=== PATIENT | female | born 1960 | race Caucasian/White ===

== ENCOUNTER 2022-03-28 06:05 | Day surgery (SDC) | payer OTHER ==
[~2022-03-28 06:05] MED LIST: Acetaminophen 325 MG Tab PO SCH; Albuterol 0.083% 2.5 MG/3 ML Neb Soln NEB PRN; EPINEPHrine 1 MG/ML SDV ONE; Lactated Ringers 1,000 ML IV SCH; Lidocaine 1%/Sod Bicarbonate in NS 8.4% 1 ML Syringe IDERM PRN; Morphine 8 MG, EPINEPHrine 0.3 MG, Cefuroxime 750 MG, Ketorolac 30 MG, Sodium Chloride ... PRN; Pregabalin 25 MG Cap PO SCH; Ropivacaine 0.5% 5 MG/ML 30 ML SDV ONE; Sodium Chloride 0.9% 10 ML Syringe FLUSH PRN; Sodium Chloride 0.9% 10 ML Syringe FLUSH SCH; oxyCODONE ER 10 MG TAB.ER PO SCH
[2022-03-28] MEDS ORDERED: Vancomycin 1 GM SDV ONE ×2 (06:07→07:09)
[2022-03-28] MEDS ORDERED: Ondansetron 4 MG/2 ML SDV ONE (06:14)
[2022-03-28] MEDS ORDERED: ceFAZolin 1 GM Vial ONE (06:14)
[2022-03-28] MEDS ORDERED: Lactated Ringers 1,000 ML ONE ×2 (06:14→08:49)
[2022-03-28] MEDS ORDERED: fentaNYL 100 MCG/2 ML SDV ONE (06:14)
[2022-03-28] MEDS ORDERED: Midazolam 1 MG/ML 2 ML SDV ONE ×2 (06:14→07:21)
[2022-03-28] MEDS ORDERED: Ketamine 500 mg/10 ML MDV ONE (06:14)
[2022-03-28] MEDS ORDERED: Ketorolac 30 MG/ML SDV ONE (06:14)
[2022-03-28] MEDS ORDERED: Triamcinolone Acetonide 40 MG/ML 1 ML SDV ONE ×2 (06:14→09:29)
[2022-03-28] MEDS ORDERED: Bupivacaine 0.25% 10 ML SDV ONE (06:14)
[2022-03-28] MEDS ORDERED: Lidocaine 1% 4 ML ONE (06:14)
[2022-03-28] MEDS ORDERED: Propofol 200 MG/20 ML SDV ONE (06:14)
[2022-03-28] MEDS ORDERED: Citric Acid/Sodium Citrate Solution 30 ML Cup PO ONE (06:38)
[2022-03-28] MEDS ORDERED: Metoclopramide 10 MG/2 ML SDV IV PRN (06:39)
[2022-03-28] MEDS ORDERED: Famotidine 20 MG/2 ML SDV IVPUSH ONE (06:39)
[2022-03-28] MEDS ORDERED: Metoclopramide 10 MG/2 ML SDV ONE (07:00)
[2022-03-28] MEDS ORDERED: Phenylephrine 1% 10 MG/ML SDV ONE (08:14)
[2022-03-28] MEDS ORDERED: Phenylephrine 1% 10 MG/ML SDV IVPUSH PRN (08:24)
[2022-03-28] MEDS ORDERED: ePHEDrine 50 MG/ML SDV IVPUSH PRN (08:24)
[2022-03-28] MEDS ORDERED: diphenhydrAMINE 50 MG/ML SDV IVPUSH PRN (08:24)
[2022-03-28] MEDS ORDERED: HYDROmorphone 0.5 MG/0.5 ML Syringe IVPUSH PRN (08:24)
[2022-03-28] MEDS ORDERED: fentaNYL 100 MCG/2 ML SDV IVPUSH PRN (08:24)
[2022-03-28] MEDS ORDERED: Ondansetron 4 MG/2 ML SDV IVPUSH PRN (08:24)
[2022-03-28] MEDS ORDERED: oxyCODONE 5 MG Tab PO PRN (10:18)
== END 2022-03-28 14:10 | disposition home or self-care (01) ==
LOC: JD.SDS 06:05
PROVIDERS: ATTEND Orthopaedic Surgery
DX: M17.0 Bilateral primary osteoarthritis of knee (principal); I10 Essential (primary) hypertension; E03.9 Hypothyroidism, unspecified; E66.9 Obesity, unspecified; Z79.890 Hormone replacement therapy; Z79.82 Long term (current) use of aspirin; Z79.899 Other long term (current) drug therapy; Z91.041 Radiographic dye allergy status; Z91.040 Latex allergy status; Z90.49 Acquired absence of other specified parts of digestive tract; Z98.890 Other specified postprocedural states; Z87.891 Personal history of nicotine dependence; Z68.42 Body mass index [BMI] 45.0-49.9, adult
CPT/HCPCS: 0055T; 20610; 27447; 73560; 97110; 97116; 97161; A9270; C1713; C1776; J0171; J0690; J0697; J1885; J2250; J2270; J2370; J2405; J2704; J2765; J2795; J3010; J3301; J3370; J3490; J7120; 01402; 64450; 76942

== ENCOUNTER 2022-08-10 08:08 | Day surgery (SDC) | payer OTHER ==
[~2022-08-10 08:08] MED LIST changes: -Albuterol 0.083% 2.5 MG/3 ML Neb Soln NEB PRN; -EPINEPHrine 1 MG/ML SDV ONE; -Morphine 8 MG, EPINEPHrine 0.3 MG, Cefuroxime 750 MG, Ketorolac 30 MG, Sodium Chloride ... PRN; +Ondansetron 4 MG/2 ML SDV ONE; +Propofol 200 MG/20 ML SDV ONE; -Ropivacaine 0.5% 5 MG/ML 30 ML SDV ONE; +ceFAZolin 2 GM Vial ONE
[2022-08-10] MEDS ORDERED: EPINEPHrine 1 MG/ML SDV ONE (09:00)
[2022-08-10] MEDS ORDERED: Ropivacaine 0.5% 5 MG/ML 30 ML SDV ONE (09:01)
[2022-08-10] MEDS ORDERED: Midazolam 1 MG/ML 2 ML SDV ONE (09:12)
[2022-08-10] MEDS ORDERED: Phenylephrine HCl In 0.9% NaCl 1 MG/10 ML Vial ONE (09:21)
[2022-08-10] MEDS ORDERED: ePHEDrine 50 MG/ML SDV ONE (09:29)
[2022-08-10] MEDS ORDERED: ceFAZolin 2 GM Vial ONE (09:30)
[2022-08-10] MEDS ORDERED: Propofol 200 MG/20 ML SDV ONE ×2 (09:58→10:14)
[2022-08-10] MEDS: Morphine 8 MG, EPINEPHrine 0.3 MG, Cefuroxime 750 MG, Ketorolac 30 MG, Sodium Chloride ... PRN ×10 (10:03→10:17)
[2022-08-10] MEDS: Vancomycin 1 GM SDV ONE ×2 (10:03→10:23)
[2022-08-10] MEDS ORDERED: Ketamine 500 mg/10 ML MDV ONE (10:09)
[2022-08-10] MEDS ORDERED: Lactated Ringers 1,000 ML ONE (10:42)
== END 2022-08-10 15:18 | disposition home or self-care (01) ==
LOC: JD.SDS 08:08
PROVIDERS: ATTEND Orthopaedic Surgery
DX: M17.12 Unilateral primary osteoarthritis, left knee (principal); I10 Essential (primary) hypertension; E66.01 Morbid (severe) obesity due to excess calories; F32.A Depression, unspecified; E04.1 Nontoxic single thyroid nodule; Z68.42 Body mass index [BMI] 45.0-49.9, adult; Z79.890 Hormone replacement therapy; Z79.82 Long term (current) use of aspirin; Z79.899 Other long term (current) drug therapy; Z91.048 Other nonmedicinal substance allergy status; Z91.040 Latex allergy status; Z90.710 Acquired absence of both cervix and uterus; Z98.890 Other specified postprocedural states; Z90.49 Acquired absence of other specified parts of digestive tract; Z87.891 Personal history of nicotine dependence
CPT/HCPCS: 0055T; 27447; 73560; 97110; 97116; 97161; A9270; C1713; C1776; J0171; J0690; J0697; J1885; J2250; J2270; J2405; J2704; J2795; J3370; J3490; J7120; 01402; 64450; 76942